=== PATIENT | male | born 1970 | race Caucasian/White ===

== ENCOUNTER → 2020-10-25 11:26 | Outpatient (BNVA) | payer OTHER, SELFPAY | PROVIDERS: Visit Provider Nurse Practitioner Family | DX: I10 Essential (primary) hypertension (principal); E78.5 Hyperlipidemia, unspecified; J01.90 Acute sinusitis, unspecified | CPT/HCPCS: 80048; 80061 ==

== ENCOUNTER → 2021-06-03 11:44 | Outpatient (BNVA) | payer OTHER, SELFPAY | PROVIDERS: PCP Nurse Practitioner Family; Visit Provider Nurse Practitioner Family | DX: M70.30 Other bursitis of elbow, unspecified elbow (principal); I10 Essential (primary) hypertension; E78.5 Hyperlipidemia, unspecified; M25.529 Pain in unspecified elbow | CPT/HCPCS: 80053; 80061 ==

== ENCOUNTER → 2022-01-23 08:34 | Outpatient (BNVA) | payer OTHER, SELFPAY | PROVIDERS: PCP Nurse Practitioner Family; Visit Provider Nurse Practitioner Family | DX: Z12.5 Encounter for screening for malignant neoplasm of prostate (principal); E78.5 Hyperlipidemia, unspecified; I10 Essential (primary) hypertension; Z12.11 Encounter for screening for malignant neoplasm of colon | CPT/HCPCS: 80053; 80061; G0103 ==

== ENCOUNTER → 2022-02-27 09:15 | Outpatient (BNVA) | payer OTHER, SELFPAY | PROVIDERS: PCP Nurse Practitioner Family; Visit Provider Nurse Practitioner Family | DX: E78.5 Hyperlipidemia, unspecified (principal); I10 Essential (primary) hypertension; F41.9 Anxiety disorder, unspecified | CPT/HCPCS: 80076 ==

== ENCOUNTER 2024-09-08 11:28 | Outpatient (CLI) | payer OTHER, SELFPAY ==
--- NOTE | 2024-09-08 11:59 | CT_ITS ---
WS: [id number] CT PARANASAL SINUSES HISTORY: CHRONIC RHINITIS/SINUSITIS TECHNIQUE: Contiguous 2.5 mm axial images obtained through the sinuses. Images are reconstructed in s agittal and coronal planes. All CT scans at [facility] use at least one of these dose optimiz ation techniques: automated exposure control; mA and/or kV adjustment per patient size (includes targ eted exams where dose is matched to clinical indication); or iterative reconstruction. DLP: 421.68 mGy.cm COMPARISON: None available. Frontal sinuses: Normal. Sphenoid sinus: Normal. Ethmoid sinuses: Normal. Maxillary sinus: Very mild mucoperiosteal thickening in the floor of the RIGHT maxillary sinus. There are no air-fluid levels. Ostiomeatal unit: Widely patent. No abnormality. Very small bony spur along the distal nasal septum w ithout significant curvature. Visualized orbits and globes are negative. CT/CT sinus wo con* [id number] IMPRESSION: 1. No air-fluid levels or significant paranasal sinus disease. 2. Ostiomeatal units are widely patent.
== END 2024-09-08 11:29 | disposition home or self-care (01) ==
PROVIDERS: PCP Nurse Practitioner Family; Visit Provider Otolaryngology
DX: J31.0 Chronic rhinitis (principal); J32.8 Other chronic sinusitis
CPT/HCPCS: 70486